=== PATIENT | female | born 2000 | race Caucasian/White ===

== ENCOUNTER 2021-07-01 13:08 | Outpatient (CLI) | payer MEDICAID, OTHER | END 2021-07-01 13:09 | disposition home or self-care (01) | LOC: CSHULT 13:08 | PROVIDERS: ATTEND Advanced Practice Midwife | DX: N63.20 Unspecified lump in the left breast, unspecified quadrant (principal) ==

== ENCOUNTER 2021-12-10 05:58 | Inpatient (IN) | payer OTHER ==
[2021-12-10] MEDS: Lactated Ringer's 1,000 ML IV SCH ×3 (06:00→13:34)
[2021-12-10 06:16] VITALS: BMI 29.1
[2021-12-10] MEDS ORDERED: HYDROcodone/Acetaminophen 5/325 mg Tablet PO PRN ×4 (07:40→22:06)
[2021-12-10] MEDS ORDERED: Carboprost 250 MCG/ML AMP IM PRN (07:40)
[2021-12-10] MEDS ORDERED: Promethazine HCl 25 MG/ML VIAL IM PRN ×2 (07:40→11:19)
[2021-12-10] MEDS ORDERED: Lidocaine 1% (PF) 30 ML VIAL SC PRN (07:40)
[2021-12-10] MEDS ORDERED: Butorphanol Tartrate 1 MG/ML VIAL SLOW IVP PRN (07:40)
[2021-12-10] MEDS ORDERED: Ibuprofen 800 MG TAB PO PRN (07:40)
[2021-12-10] MEDS ORDERED: Ondansetron PF 4 MG/2 ML Vial IVP PRN ×3 (07:40→22:06)
[2021-12-10] MEDS ORDERED: Misoprostol 200 MCG TAB PR PRN (07:40)
[2021-12-10] MEDS ORDERED: Diphenoxylate HCl/Atropine Tablet PO PRN (07:40)
[2021-12-10] MEDS ORDERED: Acetaminophen 500 MG TAB PO PRN (07:40)
[2021-12-10] MEDS ORDERED: Methylergonovine 0.2 MG/ML VIAL IM PRN ×2 (07:40→22:06)
[2021-12-10] MEDS ORDERED: hydrALAZINE 20 MG/ML VIAL SLOW IVP PRN ×2 (07:40→22:06)
[2021-12-10] MEDS ORDERED: NS w/ Oxytocin 30 units 500 ML IV SCH ×2 (07:45→22:06)
[2021-12-10] MEDS ORDERED: Penicillin G Potassium 5 MILL.UNITS in Sodium Chloride 0.9% 100 ML IVPB SCH (07:45)
[2021-12-10 07:55] LABS: Hemoglobin 11.1 g/dL (12.0-15.5); Mean Corpuscular Hemoglobin 30.5 pg (27.0-33.0); Mean Corpuscular Volume 89.6 fl (81.6-98.3); Platelet Count 187 10x3/uL (150-450); Red Blood Cell (RBC) Count 3.64 10x6/uL (3.90-5.03); White Blood Cell (WBC) Count 9.3 10x3/uL (3.5-10.5)
[2021-12-10] MEDS ORDERED: Bupivacaine 0.25% HCL 30 ML VIAL ONE (08:00)
[2021-12-10] MEDS ORDERED: ePHEDrine Sulfate 50 MG/10 ML VIAL ONE (08:00)
[2021-12-10 08:19] LABS: Hep B Surf Ag Non-Reactive S/CO (NonReactive)
[2021-12-10 08:21] LABS: Syphilis Antibody Nonreactive (Nonreactive); Syphilis Antibody Index 0.05 S/CO (<1.00 Non-Reactive)
[2021-12-10 09:30] LABS: HBSAg Index 0.18 S/CO (0-0.99)
[2021-12-10] MEDS ORDERED: Fentanyl 2 mcg/Bup 0.1% Cadd 100 ML ONE (10:56)
[2021-12-10] MEDS: Fentanyl 2 mcg/Bupivacaine 0.1% Cassette 100 ML EPIDURAL SCH ×2 (11:13→16:47)
[2021-12-10] MEDS ORDERED: Acetaminophen 325 MG TAB PO PRN (11:19)
[2021-12-10] MEDS ORDERED: diphenhydrAMINE 50 MG/ML VIAL IVP PRN (11:19)
[2021-12-10] MEDS ORDERED: Moisturizing Cream (Eucerin) 113 GM JAR TOP PRN (11:19)
[2021-12-10] MEDS ORDERED: ePHEDrine Sulfate 50 MG/10 ML VIAL SLOW IVP PRN (11:19)
[2021-12-10] MEDS ORDERED: Lactated Ringer's 500 ML IV PRN (11:19)
[2021-12-10] MEDS ORDERED: Naloxone HCl 0.4 mg/ml Vial IVP PRN ×2 (11:19)
[2021-12-10] MEDS ORDERED: Communication Order-Pharmacy FS SCH (11:30)
[2021-12-10] MEDS ORDERED: Penicillin G 2.5 MILL.units 2.5 MILL.UNITS in Premix Bag 1 BAG IVPB SCH (11:45)
[2021-12-10] MEDS: NS w/ Oxytocin 30 units 500 ML IV SCH ×2 (20:10→20:58)
[2021-12-10 20:39] LABS: SARS-CoV-2 NAA Rapid Test Not Detected (NotDetected)
[2021-12-10] MEDS ORDERED: Benzocaine-Menthol 82.5 ML CAN TOP PRN (22:06)
[2021-12-10] MEDS ORDERED: Misoprostol 200 MCG TAB VAG PRN (22:06)
[2021-12-10] MEDS ORDERED: Preparation H Ointment 28 GM TUBE PR PRN (22:06)
[2021-12-10] MEDS ORDERED: Bisacodyl 10 MG SUPP PR PRN (22:06)
[2021-12-10] MEDS ORDERED: Milk Of Magnesia 30 ML UDCUP PO PRN (22:06)
[2021-12-10] MEDS ORDERED: Lanolin Ointment 7 GM TUBE TOP PRN (22:06)
[2021-12-11] MEDS: Ibuprofen 800 MG TAB PO SCH ×4 (05:38→21:57)
[2021-12-11] MEDS: Docusate 100 MG CAP PO SCH ×3 (07:38→21:01)
[2021-12-11] MEDS: Prenatal Vitamin 1 TAB PO SCH (07:38)
[2021-12-11] MEDS: Ferrous Sulfate 325 MG TAB PO SCH ×2 (08:25→17:47)
[2021-12-11 16:15] LABS: Hemoglobin 8.4 g/dL (12.0-15.5); Mean Corpuscular HGB CONC 34.6 g/dL (32.0-36.0); Mean Corpuscular Hemoglobin 30.5 pg (27.0-33.0); Mean Corpuscular Volume 88.4 fl (81.6-98.3); Mean Platelet Volume 10.9 fl (7.4-10.4); Platelet Count 164 10x3/uL (150-450); RBC Distribution Width 14.2 % (11.5-14.5); Red Blood Cell (RBC) Count 2.75 10x6/uL (3.90-5.03); White Blood Cell (WBC) Count 11.3 10x3/uL (3.5-10.5)
[2021-12-12] MEDS: Ibuprofen 800 MG TAB PO SCH ×2 (05:59→15:17)
[2021-12-12] MEDS: Prenatal Vitamin 1 TAB PO SCH (09:18)
[2021-12-12] MEDS: Docusate 100 MG CAP PO SCH (09:18)
[2021-12-12] MEDS: Ferrous Sulfate 325 MG TAB PO SCH (09:18)
[2021-12-12 10:00] VITALS: BP 105/58; TEMP 97.9
[2021-12-12] MEDS ORDERED: Witch Hazel-Glycerin 1 EACH JAR TOP PRN (12:19)
[2021-12-12] MEDS ORDERED: Hydrocortisone 1% Cream 30 GM TUBE TOP SCH (21:00)
== END 2021-12-12 16:26 | disposition home or self-care (01) | DRG 806 ==
LOC: CSHLD/OP 05:58 → CSHLD 07:40 → CSHPP 12-11 09:50
PROVIDERS: ADMIT Obstetrics & Gynecology; ATTEND Obstetrics & Gynecology
PROC: 10E0XZZ Delivery of Products of Conception, External Approach (ICD-10-PCS; principal; 2021-12-11)
PROC: 0KQM0ZZ Repair Perineum Muscle, Open Approach (ICD-10-PCS; 2021-12-11)
PROC: 10907ZC Drainage of Amniotic Fluid, Therapeutic from Products of Conception, Via Natural or Artificial Opening (ICD-10-PCS; 2021-12-11)
DX: O99.824 Streptococcus B carrier state complicating childbirth (principal); D62 Acute posthemorrhagic anemia; Z37.0 Single live birth; O99.02 Anemia complicating childbirth; F41.9 Anxiety disorder, unspecified; O99.344 Other mental disorders complicating childbirth; Z3A.41 41 weeks gestation of pregnancy; Z20.822 Contact with and (suspected) exposure to COVID-19; Z79.899 Other long term (current) drug therapy; O76 Abnormality in fetal heart rate and rhythm complicating labor and delivery; O70.1 Second degree perineal laceration during delivery; O87.2 Hemorrhoids in the puerperium
CPT/HCPCS: 36415; 51702; 85027; 86780; 86850; 86900; 86901; 87340; 93005; 93010; 99285; J2210; J2540; J2590; J3490; J7120; S0020; U0002